=== PATIENT | female | born 1980 | race Caucasian/White ===

== ENCOUNTER → 2017-06-19 | Outpatient (CLI) | payer OTHER ==
[~2017-06-19] MED LIST: FRRS300 PO; PRENTAB26 PO
--- NOTE | 2017-06-19 12:48 | DIAGNOSTIC IMAGING REPORT ---
RIGHT LOWER EXTREMITY VENOUS DOPPLER HISTORY: RT FOOT PAIN/SWELLING, R/O DVT COMPARISON STUDY: None. FINDINGS: There is normal compressibility, flow, and augmentation within the right lower extremity deep venous system. IMPRESSION: No DVT within the right lower extremity Electronically signed by: Nura Magana M.D. 06/19/2017 12:47 PM Dictated Date/Time: 06/19/2017 12:46 PM
== END | disposition home or self-care (01) ==
LOC: C.ULTRBC 12:14
PROVIDERS: ATTEND Family Medicine
DX: M79.671 Pain in right foot (principal); R60.0 Localized edema

== ENCOUNTER 2017-09-09 17:49 | Emergency (ER) | payer OTHER ==
[2017-09-09 17:57] VITALS: TEMP 37.1; Ht 167.6 cm
--- NOTE | 2017-09-09 18:17 | EMERGENCY ROOM VISIT NOTE ---
ED Visit Note First contact with patient: 18:04 CHIEF COMPLAINT: Right knee pain HISTORY OF PRESENT ILLNESS: This 37-year-old female patient presents to the emergency department by private vehicle with complaint of right knee pain. Patient states that she twisted her knee while walking up some steps yesterday. She states that the pain has been getting progressively worse and today she has not been able to put weight on the knee without severe pain. She states that she is able to bend and straighten the knee without any pain. She states the pain is in the front of her knee, is constant and aching, rates as 3/10. She has not taken any medications for the pain. The patient denies any other injuries besides their knee. The patient has not noticed any swelling or bruising. No numbness or tingling. No previous injuries to this knee. No ankle, foot or hip pain. REVIEW OF SYSTEMS: A 6 system review of systems was completed with positives and pertinent negatives listed in the HPI. ALLERGIES: Reviewed in chart, see below. MEDICATIONS: No current medications. PMH: No significant past medical or surgical history. SOCIAL HISTORY: Lives at home. Denies tobacco use. PHYSICAL EXAM: Vital Signs: Reviewed Nurse's notes, vital signs stable. GENERAL : Pleasant and cooperative, no acute distress, well-developed, well-nourished. MENTAL STATUS: Alert, oriented to person place and time, and cooperative. MUSCULOSKELETAL: The right knee is not swollen. There is no ecchymosis. There is no joint effusion present. The patient is tender to palpation along the anterior aspect of the right knee. There is no joint line tenderness. The patella does not subluxate. Range of motion is full and normal. Strength of the quads and hamstrings is 5/5. Bing's and Anterior Drawer tests are negative. There is no instability with varus and valgus stressing. The foot and toes are warm and well-perfused. Dorsalis pedis pulse 2+. Sensation to pain and light touch is intact. Capillary refill less than 2 seconds. IMAGING: RIGHT KNEE 3 VIEWS HISTORY: anterior knee pain, include sunrise view COMPARISON: None. FINDINGS: No fracture or dislocation within the right knee. There is an 8 mm subchondral lucency within the medial femoral condyle with surrounding sclerosis. This is consistent with an osteochondral defect. No knee effusion. Soft tissues are unremarkable. No radiopaque foreign bodies. IMPRESSION: 1. No acute abnormality within the right knee. No fracture or dislocation. 2. An 8 mm osteochondral defect within the medial femoral condyle. Follow-up nonemergent right knee MRI is recommended for further evaluation. No intra-articular loose bodies identified. EMERGENCY DEPARTMENT COURSE: I examined the patient. X-rays of the right knee were reviewed by myself and read by radiology and reveal no acute abnormality. The patient was placed in a knee immobilizer under my direction and the position was satisfactory. The patient was instructed on the use of crutches, which she already has from home. The patient was provided with orthopedic surgery contact information for follow up. The patient was discharged home in good condition. Current/Historical Medications Scheduled Ferrous Sulfate (Iron), 325 MG PO DAILY Multivitamins/Minerals (Mvi With Minerals), 1 TAB PO DAILY Scheduled PRN Acetaminophen (Tylenol), 1,000 MG PO Q6 PRN for Pain Allergies Coded Allergies: Lactose (Verified Allergy, Mild, GI SYMPTOMS, 09/25/15) GI SYMPTOMS DURING Latex1 -Allergic Contact Dermititis (Verified Allergy, Mild, RASH, 09/25/15 ) Vital Signs Date Time Temp Pulse Resp B/P (MAP) Pulse Ox O2 Delivery O2 Flow Rate FiO2 09/09/17 19:31 81 16 139/81 98 09/09/17 17:57 37.1 86 18 146/86 98 Room Air Departure Information Impression Primary Impression: Sprain of right knee Dispostion Home / Self-Care Condition GOOD Referrals Hector Albrecht DO (PCP) Lavon Mckeon M.D. [facility] Patient Instructions ED Sprain Knee, My [facility] Additional Instructions DISCHARGE INSTRUCTIONS: You have been evaluated and treated in the emergency department today for your right knee pain. X-rays are negative for fractures. Ice and elevate the knee to reduce swelling and pain. Wear knee immobilizer when up and about. Use crutches - minimal weight on foot. Ibuprofen 600 mg and Tylenol 1000 mg every 6-8 hrs for pain. Follow-up with Orthopedics for further evaluation and treatment - call for appointment. Work Instructions Return To Work: 2 days Problem Qualifiers Primary Impression: Sprain of right knee Encounter type: initial encounter Involved ligament of knee: unspecified ligament Qualified Codes: S83.91XA - Sprain of unspecified site of right knee , initial encounter
[2017-09-09] MEDS ORDERED: MULT-513 PO (19:09)
[2017-09-09] MEDS ORDERED: FERR1TAB23 PO (19:09)
[2017-09-09] MEDS ORDERED: ACET-1256 PO (19:09)
[2017-09-09 19:31] VITALS: BP 139/81; PULSE 81; O2SAT 98
--- NOTE | 2017-09-09 19:38 | DIAGNOSTIC IMAGING REPORT ---
RIGHT KNEE 3 VIEWS HISTORY: anterior knee pain, include sunrise view COMPARISON: None. FINDINGS: No fracture or dislocation within the right knee. There is an 8 mm subchondral lucency within the medial femoral condyle with surrounding sclerosis. This is consistent with an osteochondral defect. No knee effusion. Soft tissues are unremarkable. No radiopaque foreign bodies. IMPRESSION: 1. No acute abnormality within the right knee. No fracture or dislocation. 2. An 8 mm osteochondral defect within the medial femoral condyle. Follow-up nonemergent right knee MRI is recommended for further evaluation. No intra-articular loose bodies identified. Electronically signed by: Nura Magana M.D. 09/09/2017 7:37 PM Dictated Date/Time: 09/09/2017 7:34 PM
== END 2017-09-09 19:26 | disposition home or self-care (01) ==
LOC: C.EDB 17:50 → C.EDD 19:26
DX: S83.91XA Sprain of unspecified site of right knee, initial encounter (principal); X50.1XXA Overexertion from prolonged static or awkward postures, initial encounter; Y93.01 Activity, walking, marching and hiking; Y99.8 Other external cause status; Z91.040 Latex allergy status; Z91.011 Allergy to milk products

== ENCOUNTER 2024-11-06 16:12 | Inpatient (IN) ==
--- NOTE | 2024-11-06 16:44 | Emergency Department Note ---
Impression & Plan Dizziness, Stroke-like symptoms, Nausea & vomiting, Ambulatory dysfunction, Anticoagulated ED Provider Note NAME: ANGELA LOCKHART AGE: 44 SEX: F : 1980 ARRIVES VIA: Walk-In INFORMANT: [Patient] ED PROVIDER(S): [Elmer Rinaldi MD] CHIEF COMPLAINT: Dizziness HISTORY OF PRESENT ILLNESS: Patient is a 44-year-old female who states that about 5-1/2 hours ago, she began to feel dizzy and there were some issues with her balance. She states that things quickly escalated to nausea and vomiting and feeling even more dizzy and off balance. She noticed a mild headache. No one-sided weakness. She feels better with her eyes closed. No speech slur. The patient is on Eliquis for A-fib, she does not have a history of CVA or TIA. There has been no recent trauma. She has not been sick with cough or cold or congestion. No urinary complaints. PMHx/PSHx/Social Hx: See Below PHYSICAL EXAM: GENERAL: Patient is in no acute distress. HEENT: No acute trauma, normocephalic atraumatic, mucous membranes moist, no nasal congestion. Pupils equal and reactive to light. No nystagmus. NECK: No stridor, no adenopathy, no meningismus, trachea is midline. LUNGS: Clear to auscultation bilaterally, no wheeze, no rhonchi, breath sounds equal. HEART: Without murmurs gallops or rubs, regular rate and rhythm. ABDOMEN: Soft, nontender, no peritonitis. Obese. EXTREMITIES: No cyanosis, full range of motion of all the joints without pain or difficulty. NEUROLOGIC: Oriented x 3, no speech slur or facial droop, no extremity drift or cerebellar dysfunction. Excellent historian. SKIN: No jaundice, no diaphoresis. DIFFERENTIAL DIAGNOSIS: Vertigo, dehydration, electrolyte imbalance, UTI, stroke, intracranial bleeding, among others. EMERGENCY DEPARTMENT PROCEDURES: MEDICAL DECISION MAKING: There is a mild leukocytosis, this could be consistent with infection or the stress of her presentation. There was a normal hemoglobin and platelet count. No bandemia. No coagulopathy by laboratory testing. No renal failure or significant electrolyte abnormality. No concerning liver enzyme elevation. testing was negative. ECG showed a sinus rhythm, no ischemia or dysrhythmia. Cardiac enzyme testing x 1 was not consistent with acute cardiac injury. Urinalysis did not show infection. Brain CT showed no acute bleed or mass effect. CTA of the head and neck were performed, there was no significant stenosis, no clot. On exam, the patient had no focal neurologic findings, no speech slur. As per nursing staff, the patient was very unsteady when trying to ambulate. The patient received IV saline, IV Zofran, IV Solu-Medrol, IV Benadryl. She did not feel much improved even with this medication. Certainly, the patient may have a severe case of vertigo. However, given the unsteadiness, given her Eliquis use, given the strokelike presentation potentially, I did think admission was warranted. I spoke with the patient and case management, the on-call hospitalist was consulted. Of note, the patient is not a TNK candidate. She is out of the time window for TNK, she is anticoagulated with Eliquis. Prior/Outside records/notes reviewed: None ECG per my interpretation: Indication was dizziness. The ECG shows a normal sinus rhythm with a rate of 63. There is no ST elevation, no PVCs. The QTc is 444. Continuous Cardiac Monitoring per my interpretation: An order was placed for continuous cardiac monitoring. The monitor shows a rate of 71 with normal sinus rhythm. Imaging/x-ray results per my interpretation: Chronic Medical/Social conditions affecting care: Currently on Eliquis for A- fib Care/Management discussed with: Case management, the on-call hospitalist. Level of care consideration(s): After review of the information above and other included data: --I believe the patient requires escalation of care to admission DISPOSITION: Admission Past Med/Surg History Problem List (Updated 11/06/24 @ 23:37 by Elmer Rinaldi MD) Anticoagulated (Acute) Ambulatory dysfunction (Acute) Nausea & vomiting (Acute) Stroke-like symptoms (Acute) Dizziness (Acute) Cholelithiasis Anxiety Hyperlipemia Intercostal neuralgia Breast hypertrophy in female (Chronic) resolved Morbid obesity (Chronic) Chronic chest wall pain (Chronic) resolved Right shoulder strain Breast pain Medical History Depression Hx of chlamydia infection prior to 2019 Hx of pelvic inflammatory disease History of COVID-19 02/2023, home test, low grade fever, flu-like symptoms>only occ. cough currently Anemia Anxiety Hx of migraines History of palpitations ~10/2022, stress test @[facility]>normal results Polycystic ovarian syndrome Surgical History Hx laparoscopic cholecystectomy (03/05/24) Robotic Assisted Laparoscopic Cholecystectomy with Possible Cholangiogram(Not Applicable) - Horacio Boss DO, FACS History of cystoscopy H/O: hysterectomy History of surgery on wrist right S/P tendon repair rt elbow History of wisdom tooth extraction History of laparoscopy with adhesiolysis 1999, 2000 Family History Grandfather (Maternal) Heart disease Sister Thyroid disease Grandfather (Maternal) Myocardial infarction Uncle Myocardial infarction Uncle Myocardial infarction Mother Cancer Heart disease Other No significant family history Trisomy 21, Down syndrome Social History Smoking Status: Never smoker Second Hand Exposure: No; Do You Dip or Chew Tobacco: No; Hx Alcohol Use: No Hx Substance Use: No Preferred Language: Icelandic Communication Ability: Effective Visual Impairment: No Limitations Hearing Ability: Normal Personal Care Assistant Required: No Beliefs That Will Affect Care: None marital status: Current Living Situation: Spouse and Family current occupational status: employed current occupation: [employer] How many Children do You have: 2 Other Information That Helps Us Care for You: No Feels Safe at Home: Yes Safety Concerns: Feels Safe At This Time during the past year weight has: remained stable Assistive Devices: Glasses Allergies Allergies Allergy/AdvReac Type Severity Reaction Status Date / Time latex Allergy Severe Swelling Verified 08/04/24 10:29 of Lip/Tongue/Throat lactose AdvReac Mild GI SYMPTOMS Verified 08/04/24 10:25 Home Meds Home Medications Medication Instructions Recorded Confirmed apixaban 5 mg tablet (Eliquis) 5 mg PO BID 08/04/24 11/06/24 ascorbic acid (vitamin C) 500 mg 500 mg PO DAILY 08/04/24 11/06/24 tablet (Vitamin C) epinephrine 0.3 mg/0.3 mL 0.3 mg IM DAILY PRN Allergic 08/04/24 11/06/24 injection, auto-injector Reaction buspirone 7.5 mg tablet 7.5 mg PO BID 11/06/24 11/06/24 metoprolol succinate 25 mg 25 mg PO BID 11/06/24 11/06/24 tablet,extended release 24 hr Results & Data (ED) Vital Signs Vital Signs - 24 hr 11/06/24 16:14 11/06/24 16:49 11/06/24 16:49 Temperature 36.7 C Temperature Source Temporal Artery Scan Pulse Rate 71 Pulse Rate [Apical] 66 Pulse Rhythm Regular Pulse Rhythm [Apical] Pulse Strength Normal Pulse Strength [Apical] Respiratory Rate 17 12 Respiratory Effort / Characteristics Non-Labored Spontaneous Respiratory Depth Normal Respiratory Pattern Regular Blood Pressure 141/98 H Blood Pressure [Left Arm] 157/99 H Blood Pressure Mean 112 Blood Pressure Mean [Left Arm] 118 Blood Pressure Position Sitting Blood Pressure Position [Left Arm] Pulse Oximetry 97 97 96 Oxygen Delivery Method Room Air Room Air Room Air Sepsis Recent Fever Within 48 Hours No Sepsis New/Unexplained Change in Mental Status N/A Sepsis Action Taken by Nursing No Action Required 11/06/24 16:49 11/06/24 17:24 11/06/24 18:12 Temperature Temperature Source Pulse Rate 62 62 Pulse Rate [Apical] 54 L Pulse Rhythm Pulse Rhythm [Apical] Regular Pulse Strength Pulse Strength [Apical] Normal Respiratory Rate 10 L 20 Respiratory Effort / Characteristics Non-Labored Respiratory Depth Normal Respiratory Pattern Regular Blood Pressure Blood Pressure [Left Arm] 157/99 H Blood Pressure Mean Blood Pressure Mean [Left Arm] 118 Blood Pressure Position Blood Pressure Position [Left Arm] Lying Pulse Oximetry 97 96 Oxygen Delivery Method Room Air Room Air Sepsis Recent Fever Within 48 Hours Sepsis New/Unexplained Change in Mental Status Sepsis Action Taken by Retirement Medications Current Medication List: was personally reviewed by me Laboratory Data Attestation: I reviewed the patient's lab results. 11/06/24 16:45 11/06/24 16:45 Lab Results 11/06/24 11/06/24 11/06/24 Range/Units 16:45 16:49 17:15 WBC 12.69 H (4.8-10.8) K/ul RBC 4.52 (4.20-5.40) M/uL Hgb 12.2 (12.0-16.0) g/dl POC Hgb 12.9 (12.0-16.0) g/dl Hct 37.1 (37.0-47.0) % POC Hct 38 (37-47) % MCV 82.1 (80.0-100.0) fL MCH 27.0 (25.0-34.0) pg MCHC 32.9 (32.0-36.0) g/dL RDW Std Deviation 44.2 (36.4-46.3) fL RDW Coeff of Ronnie 14.8 H (11.5-14.5) % Plt Count 386 (130-400) K/uL MPV 10.3 (9.4-12.4) fL Immature Gran % (Auto) 0.4 % Neut % (Auto) 70.8 % Lymph % (Auto) 20.6 % [place] % (Auto) 5.0 % Eos % (Auto) 2.7 % Baso % (Auto) 0.5 % Neut # (Auto) 9.00 H (1.40-6.50) K/uL Lymph # (Auto) 2.61 (1.20-3.40) K/uL [place] # (Auto) 0.63 H (0.11-0.59) K/uL Eos # (Auto) 0.34 (0.00-0.50) K/uL Baso # (Auto) 0.06 (0.00-0.20) K/uL Immature Gran # (Auto) 0.05 (0.01-0.20) K/uL PT 10.3 (9.0-12.0) Seconds INR 0.9 (0.9-1.1) APTT 29 (21-31) Seconds PTT Ratio 1.1 POC Sodium 139 (135-144) mmol/L Sodium 137 (136-145) mmol/L POC Potassium 4.0 (3.3-5.0) mmol/L Potassium 3.9 (3.5-5.1) mmol/L POC Chloride 101 (101-112) mmol/L Chloride 104 (98-107) mmol/L Carbon Dioxide 25 (21-32) mmol/L POC Total CO2 23 L (24-31) mmol/L Anion Gap 8 (3-11) POC Anion Gap 20.0 (16-25) mmol/L POC BUN 8 (7-18) mg/dl BUN 10 (6-23) mg/dl Creatinine 0.70 (0.6-1.2) mg/dl POC Creatinine 0.8 (0.6-1.3) mg/dl Est Cr Clr Drug Dosing 144.4 ml/min eGFR 110.67 BUN/Creatinine Ratio 14.3 (10-20) Glucose 121 H (70-99(Fasting)) mg/dl POC Glucose (other) 121 H (70-99) mg/dl Calcium 8.9 (8.6-10.3) mg/dl POC Ioniz Calcium Surjit 1.15 (1.12-1.32) mmol/l Magnesium 2.0 (1.7-2.4) mg/dl Total Bilirubin 0.4 (0.2-1.0) mg/dl AST 15 (13-39) U/L ALT 13 (7-52) U/L Alkaline Phosphatase 87 (34-104) U/L Troponin I High Sens 2.7 (0-14) pg/ml Total Protein 7.3 (6.0-8.3) gm/dl Albumin 3.8 (3.4-5.0) gm/dl Globulin 3.5 (2.5-4.0) gm/dl Albumin/Globulin Ratio 1.1 (0.9-2) HCG, Qual Negative (Negative) Urine Color Yellow Urine Appearance Clear (Clear) Urine pH 6.5 (4.5-7.5) Ur Specific [place] 1.006 (1.000-1.030) Urine Protein Negative (Negative) Urine Glucose (UA) Negative (Negative) Urine Ketones Negative (Negative) Urine Blood Negative (Negative) Urine Nitrite Negative (Negative) Urine Bilirubin Negative (Negative) Urine Urobilinogen Negative (Negative) Ur Leukocyte Esterase Negative (Negative) Urine Comment Administered Medications Buspirone HCl (Buspirone 7.5 Mg Tab) 7.5 mg PO BID DHRUV Stop: 12/06/24 20:59 Last Admin: 11/06/24 21:37 Dose: 7.5 mg Documented By: MARIETTA Diazepam (Diazepam 5 Mg Tablet) 5 mg PO BID PRN PRN Reason: dizziness Stop: 12/06/24 18:56 Last Admin: 11/06/24 19:45 Dose: 5 mg Documented By: LAF Discontinued Medications Diphenhydramine HCl (Diphenhydramine 50 Mg/Ml Vial) 12.5 mg IV NOW STA Stop: 11/06/24 16:40 Last Admin: 11/06/24 16:54 Dose: 12.5 mg Documented By: JOCY Sodium Chloride (Nss) 1,000 mls @ 999 mls/hr IV .Q1H1M ONE Stop: 11/06/24 17:39 Last Infusion: 11/06/24 17:57 Dose: Infused Documented By: Admin: 11/06/24 16:54 Dose: 999 mls/hr Documented By: JOCY Ioversol (Optiray 320 125ml) 119 ml IV ONCE ONE Stop: 11/06/24 17:08 Last Admin: 11/06/24 17:08 Dose: 119 ml Documented By: TENA Methylprednisolone (Methylprednisolone 125 Mg/2 Ml Vial) 40 mg IV NOW STA Stop: 11/06/24 16:40 Last Admin: 11/06/24 16:53 Dose: 40 mg Documented By: JOCY Ondansetron HCl (Ondansetron Inj 2 Mg/Ml 2 Ml Vial) 4 mg IV NOW STA Stop: 11/06/24 16:40 Last Admin: 11/06/24 16:53 Dose: 4 mg Documented By: JOCY Imaging Data Radiologist's Impression: Head CT 11/06/24 16:31 Clinical History: Dizziness and headaches. Technique: Axial computed tomography images were obtained of the brain from the vertex to the skull base without intravenous contrast. Findings: There is no sign of intracranial hemorrhage. There is normal curtis-white matter differentiation with no sign of acute or old infarction. No midline shift or other form of herniation is identified. There is no hydrocephalus. No obvious mass lesion is seen on this noncontrast examination. The visualized portions of the orbits and paranasal sinuses appear unremarkable. The mastoid air cells appear clear Impression: Unremarkable noncontrast CT of the brain Electronically signed by Shahbaz Keller 11-06-2024 5:24 PM Head CTA 11/06/24 16:39 Clinical History: Dizziness and headaches. Technique: Axial computed tomography images were obtained of the brain after the administration of intravenous contrast according to the CT angiogram protocol Findings: There is calcified plaque within the cavernous and supraclinoid segments of the internal carotid arteries bilaterally No definite stenosis or aneurysm is seen of the anterior, middle, or posterior cerebral artery circulations. The visualized vertebral arteries and the basilar artery appear unremarkable Impression: No definite stenosis or aneurysm of the intracranial arteries Electronically signed by Shahbaz Keller 11-06-2024 5:26 PM Neck CTA 11/06/24 16:39 Clinical history: Dizziness and headaches Technique: Axial computed tomography images were obtained of the neck after the administration of intravenous contrast according to the CT angiogram protocol Findings: No stenosis is seen of the common carotid arteries bilaterally. The carotid bulbs appear normal. The remainder of the internal carotid arteries appear patent bilaterally. No stenosis of the external carotid arteries is seen The left vertebral artery is dominant. No definite vertebral artery stenosis is seen. The visualized thoracic aorta appears unremarkable Impression: Unremarkable CTA of the neck Electronically signed by Shahbaz Keller 11-06-2024 5:30 PM Discharge Plan Visit Data Chief Complaint: Dizziness Stated Complaint: EXTREMELY DIZZY/LIGHTHEADED ED Provider: Elmer Rinaldi Discharge Problem: Dizziness, Stroke-like symptoms, Nausea & vomiting, Ambulatory dysfunction, Anticoagulated Patient Disposition: Admitted As Inpatient Condition: Fair Discharge Instructions Interventions: ED Discharge Assessment Last Done: 11/06/24 19:53 Discharge Problem: Nausea & vomiting Qualifiers: Vomiting type: unspecified Qualified Code(s): R11.2 - Nausea with vomiting, unspecified
[2024-11-06] MEDS: ONDANSETRON INJ 2 MG/ML 2 ML VIAL IV STA (16:53)
[2024-11-06] MEDS: diphenhydrAMINE 50 MG/ML VIAL IV STA (16:54)
[2024-11-06] MEDS: SODIUM CHLORIDE 0.9% 1,000 ML IV ONE (16:54)
[2024-11-06 17:02] LABS: Hematocrit (blood only) 37.1 % (37.0-47.0); Hemoglobin 12.2 g/dl (12.0-16.0); Immature Granulocytes # (auto) 0.05 K/uL (0.01-0.20); Immature Granulocytes % (auto) 0.4 %; Mean Corpuscular Hemoglobin 27.0 pg (25.0-34.0); Mean Corpuscular Volume 82.1 fL (80.0-100.0); Platelet Count 386 K/uL (130-400); RDW Standard Deviation 44.2 fL (36.4-46.3); Red Blood Count 4.52 M/uL (4.20-5.40); White Blood Count 12.69 K/ul (4.8-10.8)
[2024-11-06] MEDS: OPTIRAY 320 125ml IV ONE (17:08)
[2024-11-06 17:19] LABS: Alanine Aminotransferase 13.0 U/L (7-52); Albumin Globulin Ratio 1.1 (0.9-2); Alkaline Phosphatase 87.0 U/L (34-104); Anion Gap 8.0 (3-11); Bilirubin,Total 0.4 mg/dl (0.2-1.0); Blood Urea Nitrogen 10.0 mg/dl (6-23); Calcium 8.9 mg/dl (8.6-10.3); Carbon Dioxide 25.0 mmol/L (21-32); Chloride 104.0 mmol/L (98-107); Creatinine Clr Calc Pharmacy 144.4 ml/min; Globulin 3.5 gm/dl (2.5-4.0); Glucose 121.0 mg/dl (70-99(Fasting)); Magnesium 2.0 mg/dl (1.7-2.4); Potassium 3.9 mmol/L (3.5-5.1); Pregnancy Test, Serum Negative (Negative); Sodium 137.0 mmol/L (136-145); Total Protein 7.3 gm/dl (6.0-8.3)
--- NOTE | 2024-11-06 17:24 | CT Scan Report ---
Clinical History: Dizziness and headaches. Technique: Axial computed tomography images were obtained of the brain from the vertex to the skull base without intravenous contrast. Findings: There is no sign of intracranial hemorrhage. There is normal curtis-white matter differentiation with no sign of acute or old infarction. No midline shift or other form of herniation is identified. There is no hydrocephalus. No obvious mass lesion is seen on this noncontrast examination. The visualized portions of the orbits and paranasal sinuses appear unremarkable. The mastoid air cells appear clear Impression: Unremarkable noncontrast CT of the brain Electronically signed by Shahbaz Keller 11-06-2024 5:24 PM
--- NOTE | 2024-11-06 17:27 | CT Scan Report ---
Clinical History: Dizziness and headaches. Technique: Axial computed tomography images were obtained of the brain after the administration of intravenous contrast according to the CT angiogram protocol Findings: There is calcified plaque within the cavernous and supraclinoid segments of the internal carotid arteries bilaterally No definite stenosis or aneurysm is seen of the anterior, middle, or posterior cerebral artery circulations. The visualized vertebral arteries and the basilar artery appear unremarkable Impression: No definite stenosis or aneurysm of the intracranial arteries Electronically signed by Shahbaz Keller 11-06-2024 5:26 PM
[2024-11-06 17:33] LABS: INR 0.9 (0.9-1.1); Partial Thromboplastin Time 29 Seconds (21-31); Prothrombin Time 10.3 Seconds (9.0-12.0)
--- NOTE | 2024-11-06 17:33 | CT Scan Report ---
Clinical history: Dizziness and headaches Technique: Axial computed tomography images were obtained of the neck after the administration of intravenous contrast according to the CT angiogram protocol Findings: No stenosis is seen of the common carotid arteries bilaterally. The carotid bulbs appear normal. The remainder of the internal carotid arteries appear patent bilaterally. No stenosis of the external carotid arteries is seen The left vertebral artery is dominant. No definite vertebral artery stenosis is seen. The visualized thoracic aorta appears unremarkable Impression: Unremarkable CTA of the neck Electronically signed by Shahbaz Keller 11-06-2024 5:30 PM
[2024-11-06 17:35] LABS: Appearance Urine Clear (Clear); Glucose Urine UA Negative (Negative)
--- NOTE | 2024-11-06 18:37 | History & Physical Report ---
Date of Service November 06, 2024 Assessment & Plan (1) Anxiety: (2) Hyperlipemia: (3) Depression: (4) Anxiety: (5) Hx of migraines: Plan The patient is a 44-year-old female who presented to the ED on 11/06/2024 with complaints of dizziness x 6 hours not improved with medication Dizziness Vertigo versus CVA Trialed IV Solu-Medrol, Benadryl, Zofran in ED with no improvement PT/OT, head CT and head and neck CTA unremarkable Check head MRI, consult neurology, can trial Valium for symptom management Hx AF on AC: Continue metoprolol, hold Eliquis until stroke ruled out Hx anxiety: Continue buspirone Total of 60 minutes was spent on chart review/reviewing diagnostic data/facilitating plan of care/discussion with consultants Full code DVT prophylaxis: Eliquison hold for stroke rule out History of Present Illness Chief Complaint: Dizziness Primary Care Provider: Hector Albrecht The patient is a 44-year-old female with a past medical history of anxiety, HLD, A-fib on Eliquis who presents to the ED on 11/06/2024 with complaints of ongoing dizziness for 6 hours. Patient reports waking up this morning feeling dizzy. She initially felt lightheaded and thought she needed to eat. She went got f ood, felt like she was unable to stand and went back home and took a nap. She woke up with continuing symptoms. And was unable to move so she came to the ER. Patient also reported associated nausea and some vomiting secondary to the dizziness. Received IV Solu-Medrol, Benadryl and Zofran in the ER without improvement in symptoms. Reports she feels better with her eyes closed. She denies any fever/chills/chest pain/shortness of breath. Denies any abdominal pain. On arrival to the ED, labs are remarkable for WBC 12.6 CO2 23, glucose 121, urinalysis negative Head CT was negative Head CTA was negative Neck CTA was negative The patient will be admitted for further workup of dizziness and to rule out stroke Allergies Allergy/AdvReac Type Severity Reaction Status Date / Time latex Allergy Severe Swelling Verified 08/04/24 10:29 of Lip/Tongue/Throat lactose AdvReac Mild GI SYMPTOMS Verified 08/04/24 10:25 Home Medications Medication Instructions Recorded Confirmed Type apixaban 5 mg tablet (Eliquis) 5 mg PO BID 08/04/24 11/06/24 History ascorbic acid (vitamin C) 500 mg 500 mg PO DAILY 08/04/24 11/06/24 History tablet (Vitamin C) epinephrine 0.3 mg/0.3 mL 0.3 mg IM DAILY PRN Allergic 08/04/24 11/06/24 History injection, auto-injector Reaction buspirone 7.5 mg tablet 7.5 mg PO BID 11/06/24 11/06/24 History metoprolol succinate 25 mg 25 mg PO BID 11/06/24 11/06/24 History tablet,extended release 24 hr Past Med/Surg History Problem List (Updated 08/19/24 @ 00:06 by Coleman Dennis) Cholelithiasis Anxiety Hyperlipemia Intercostal neuralgia Breast hypertrophy in female (Chronic) resolved Morbid obesity (Chronic) Chronic chest wall pain (Chronic) resolved Right shoulder strain Breast pain Medical History Depression Hx of chlamydia infection prior to 2019 Hx of pelvic inflammatory disease History of COVID-19 02/2023, home test, low grade fever, flu-like symptoms>only occ. cough currently Anemia Anxiety Hx of migraines History of palpitations ~10/2022, stress test @[facility]>normal results Polycystic ovarian syndrome Surgical History Hx laparoscopic cholecystectomy (03/05/24) Robotic Assisted Laparoscopic Cholecystectomy with Possible Cholangiogram(Not Applicable) - Horacio Boss DO, FACS History of cystoscopy H/O: hysterectomy History of surgery on wrist right S/P tendon repair rt elbow History of wisdom tooth extraction History of laparoscopy with adhesiolysis 1999, 2000 Family History Grandfather (Maternal) Heart disease Sister Thyroid disease Grandfather (Maternal) Myocardial infarction Uncle Myocardial infarction Uncle Myocardial infarction Mother Cancer Heart disease Other No significant family history Trisomy 21, Down syndrome Social History Smoking Status: Never smoker Second Hand Exposure: No; Do You Dip or Chew Tobacco: No; Hx Alcohol Use: Yes Alcohol type: beer Alcohol Intake Frequency: Monthly or Less Hx Substance Use: No Preferred Language: Angolan Communication Ability: Effective Visual Impairment: No Limitations Hearing Ability: Normal Concrete Curer Required: No Beliefs That Will Affect Care: None marital status: Current Living Situation: Family current occupational status: employed current occupation: [employer] How many Children do You have: 2 Feels Safe at Home: Yes during the past year weight has: remained stable Assistive Devices: Glasses Review of Systems Review of Systems: All systems reviewed & are unremarkable except as noted in HPI & below Physical Exam Constitutional: WD/WN, vitals as above Eyes: PERRL, conjunctivae normal, anicteric sclerae ENMT: external ear and nose normal, oropharynx normal Neck: trachea midline, no thyromegaly Respiratory: normal respiratory effort, lungs clear to auscultation Cardiovascular: RRR, no murmur, no edema Gastrointestinal (Abdomen): normal bowel sounds, soft, nontender, no hepatosplenomegaly Musculoskeletal: no cyanosis or clubbing, extremities motor strength 5/5 Skin: no rashes, warm and dry Neurologic: PERRL, EOMI, accommodation nl, no face palsy, no dysarthria Psychiatric: A+Ox3, euthymic affect Genitourinary: no vaginal lesions, no adnexal mass Lymphatic: no cervical or axillary lymphadenopathy Results & Data Results & Data Vital Signs (Past 12 Hours) Vital Signs Temp Pulse Pulse Resp BP BP Pulse Ox 11/06/24 18:12 54 L 20 157/99 H 96 11/06/24 17:24 62 11/06/24 16:49 62 10 L 97 11/06/24 16:49 66 12 157/99 H 96 11/06/24 16:49 97 11/06/24 16:14 36.7 C 71 17 141/98 H 97 O2 Del Method 11/06/24 18:12 Room Air 11/06/24 17:24 11/06/24 16:49 Room Air 11/06/24 16:49 Room Air 11/06/24 16:49 Room Air 11/06/24 16:14 Room Air Diagnostic Findings Laboratory Results WBC 12.69 K/ul (4.8-10.8) H 11/06/24 16:45 RBC 4.52 M/uL (4.20-5.40) 11/06/24 16:45 Hgb 12.2 g/dl (12.0-16.0) 11/06/24 16:45 POC Hgb 12.9 g/dl (12.0-16.0) 11/06/24 16:49 Hct 37.1 % (37.0-47.0) 11/06/24 16:45 POC Hct 38 % (37-47) 11/06/24 16:49 MCV 82.1 fL (80.0-100.0) 11/06/24 16:45 MCH 27.0 pg (25.0-34.0) 11/06/24 16:45 MCHC 32.9 g/dL (32.0-36.0) 11/06/24 16:45 RDW Std Deviation 44.2 fL (36.4-46.3) 11/06/24 16:45 RDW Coeff of Ronnie 14.8 % (11.5-14.5) H 11/06/24 16:45 Plt Count 386 K/uL (130-400) 11/06/24 16:45 MPV 10.3 fL (9.4-12.4) 11/06/24 16:45 Immature Gran % (Auto) 0.4 % 11/06/24 16:45 Neut % (Auto) 70.8 % 11/06/24 16:45 Lymph % (Auto) 20.6 % 11/06/24 16:45 [place] % (Auto) 5.0 % 11/06/24 16:45 Eos % (Auto) 2.7 % 11/06/24 16:45 Baso % (Auto) 0.5 % 11/06/24 16:45 Neut # (Auto) 9.00 K/uL (1.40-6.50) H 11/06/24 16:45 Lymph # (Auto) 2.61 K/uL (1.20-3.40) 11/06/24 16:45 [place] # (Auto) 0.63 K/uL (0.11-0.59) H 11/06/24 16:45 Eos # (Auto) 0.34 K/uL (0.00-0.50) 11/06/24 16:45 Baso # (Auto) 0.06 K/uL (0.00-0.20) 11/06/24 16:45 Immature Gran # (Auto) 0.05 K/uL (0.01-0.20) 11/06/24 16:45 PT 10.3 Seconds (9.0-12.0) 11/06/24 16:45 INR 0.9 (0.9-1.1) 11/06/24 16:45 APTT 29 Seconds (21-31) 11/06/24 16:45 PTT Ratio 1.1 11/06/24 16:45 POC Sodium 139 mmol/L (135-144) 11/06/24 16:49 Sodium 137 mmol/L (136-145) 11/06/24 16:45 POC Potassium 4.0 mmol/L (3.3-5.0) 11/06/24 16:49 Potassium 3.9 mmol/L (3.5-5.1) 11/06/24 16:45 POC Chloride 101 mmol/L (101-112) 11/06/24 16:49 Chloride 104 mmol/L (98-107) 11/06/24 16:45 Carbon Dioxide 25 mmol/L (21-32) 11/06/24 16:45 POC Total CO2 23 mmol/L (24-31) L 11/06/24 16:49 Anion Gap 8 (3-11) 11/06/24 16:45 POC Anion Gap 20.0 mmol/L (16-25) 11/06/24 16:49 POC BUN 8 mg/dl (7-18) 11/06/24 16:49 BUN 10 mg/dl (6-23) 11/06/24 16:45 Creatinine 0.70 mg/dl (0.6-1.2) 11/06/24 16:45 POC Creatinine 0.8 mg/dl (0.6-1.3) 11/06/24 16:49 Est Cr Clr Drug Dosing 144.4 ml/min 11/06/24 16:45 eGFR 110.67 11/06/24 16:45 BUN/Creatinine Ratio 14.3 (10-20) 11/06/24 16:45 Glucose 121 mg/dl (70-99(Fasting)) H 11/06/24 16:45 POC Glucose (other) 121 mg/dl (70-99) H 11/06/24 16:49 Calcium 8.9 mg/dl (8.6-10.3) 11/06/24 16:45 POC Ioniz Calcium Surjit 1.15 mmol/l (1.12-1.32) 11/06/24 16:49 Magnesium 2.0 mg/dl (1.7-2.4) 11/06/24 16:45 Total Bilirubin 0.4 mg/dl (0.2-1.0) 11/06/24 16:45 AST 15 U/L (13-39) 11/06/24 16:45 ALT 13 U/L (7-52) 11/06/24 16:45 Alkaline Phosphatase 87 U/L (34-104) 11/06/24 16:45 Troponin I High Sens 2.7 pg/ml (0-14) 11/06/24 16:45 Total Protein 7.3 gm/dl (6.0-8.3) 11/06/24 16:45 Albumin 3.8 gm/dl (3.4-5.0) 11/06/24 16:45 Globulin 3.5 gm/dl (2.5-4.0) 11/06/24 16:45 Albumin/Globulin Ratio 1.1 (0.9-2) 11/06/24 16:45 HCG, Qual Negative (Negative) 11/06/24 16:45 Urine Color Yellow 11/06/24 17:15 Urine Appearance Clear (Clear) 11/06/24 17:15 Urine pH 6.5 (4.5-7.5) 11/06/24 17:15 Ur Specific Olivia 1.006 (1.000-1.030) 11/06/24 17:15 Urine Protein Negative (Negative) 11/06/24 17:15 Urine Glucose (UA) Negative (Negative) 11/06/24 17:15 Urine Ketones Negative (Negative) 11/06/24 17:15 Urine Blood Negative (Negative) 11/06/24 17:15 Urine Nitrite Negative (Negative) 11/06/24 17:15 Urine Bilirubin Negative (Negative) 11/06/24 17:15 Urine Urobilinogen Negative (Negative) 11/06/24 17:15 Ur Leukocyte Esterase Negative (Negative) 11/06/24 17:15 Urine Comment 11/06/24 17:[address] 11/06/24 16:31 Clinical History: Dizziness and headaches. Technique: Axial computed tomography images were obtained of the brain from the vertex to the skull base without intravenous contrast. Findings: There is no sign of intracranial hemorrhage. There is normal curtis-white matter differentiation with no sign of acute or old infarction. No midline shift or other form of herniation is identified. There is no hydrocephalus. No obvious mass lesion is seen on this noncontrast examination. The visualized portions of the orbits and paranasal sinuses appear unremarkable. The mastoid air cells appear clear Impression: Unremarkable noncontrast CT of the brain Electronically signed by Shahbaz Keller 11-06-2024 5:24 PM Head CTA 11/06/24 16:39 Clinical History: Dizziness and headaches. Technique: Axial computed tomography images were obtained of the brain after the administration of intravenous contrast according to the CT angiogram protocol Findings: There is calcified plaque within the cavernous and supraclinoid segments of the internal carotid arteries bilaterally No definite stenosis or aneurysm is seen of the anterior, middle, or posterior cerebral artery circulations. The visualized vertebral arteries and the basilar artery appear unremarkable Impression: No definite stenosis or aneurysm of the intracranial arteries Electronically signed by Shahbaz Keller 11-06-2024 5:26 PM Neck CTA 11/06/24 16:39 Clinical history: Dizziness and headaches Technique: Axial computed tomography images were obtained of the neck after the administration of intravenous contrast according to the CT angiogram protocol Findings: No stenosis is seen of the common carotid arteries bilaterally. The carotid bulbs appear normal. The remainder of the internal carotid arteries appear patent bilaterally. No stenosis of the external carotid arteries is seen The left vertebral artery is dominant. No definite vertebral artery stenosis is seen. The visualized thoracic aorta appears unremarkable Impression: Unremarkable CTA of the neck Electronically signed by Shahbaz Keller 11-06-2024 5:30 PM Supervising Physician Co-Signing Physician Notes Attending Addendum: Case reviewed with the advanced practitioner. I have personally performed a history and physical examination on the patient. I have reviewed the advanced practitioner's documentation on the date of service referenced in note, and I agree with, and take responsibility for the plan of care. please refer to her notes for full details patient seen and examined, records reviewed by myself as well on exam, patient seen resting in bed, not in distress still having some dizziness- room spinning around her no chest pain, dyspnea, palpitations, dizziness no fever/chills, headache, blurring of vision, focal neuro deficits no other symptoms VS noted and reviewed oriented x 3, not in distress, speaks in sentences with no effort nor accessory muscle use normal rate, regular rhythm, no murmurs clear breath sounds bilaterally non distended, soft, nontender no bipedal edema, erythema, warmth no neuro deficits all labs, imaging noted and reviewed ASSESSMENT AND PLAN> DIZZINESS LIKELY BPPV CT head and neck angio: no acute process, occlusion, stenosis Brain MRI pending trial of Valium PRN Meclizine, Zofran PT/OT eval for Sylwia Maneuver tomorrow other diagnoses and plan of care as per advanced practitioner's notes I spent a total of 35 minutes coordinating, documenting, and providing care for this patient, excluding time spent in the performance of separately billed services or time spent by another provider/QHP. Ajit Knapp MD
[2024-11-06] MEDS ORDERED: ACETAMINOPHEN 325 MG TAB PO PRN (20:00)
[2024-11-06] MEDS ORDERED: PHARMACIST DISCHARGE MED REC CONSULT PRN (20:00)
--- NOTE | 2024-11-06 22:22 | Magnetic Resonance Report ---
Exam(s): MRI HEAD Without Contrast EXAM: MR Head Without Intravenous Contrast CLINICAL HISTORY: Reason for exam: r/o stroke. TECHNIQUE: Magnetic resonance images of the head/brain without intravenous contrast in multiple planes. COMPARISON: Prior head CT from November 06. FINDINGS: Brain: Unremarkable. No mass. No hemorrhage. No acute infarct. The flow voids at the base. Ventricles: Unremarkable. No ventriculomegaly. Bones/joints: There is loss of normal T1 bright bone marrow signal within the calvarium and proximal cervical spine. No acute fracture. Sinuses: Unremarkable as visualized. No acute sinusitis. Mastoid air cells: Unremarkable as visualized. No mastoid effusion. Orbits: Unremarkable as visualized. IMPRESSION: No evidence of acute intracranial pathology. Loss of normal bone marrow signal within the calvarium and proximal cervical spine concerning for possible replacement process. Electronically signed by: Kenia Rabago MD 11/06/24 22:21 PM
[2024-11-07 06:53] LABS: Hematocrit (blood only) 37.9 % (37.0-47.0); Hemoglobin 12.2 g/dl (12.0-16.0); Immature Granulocytes # (auto) 0.11 K/uL (0.01-0.20); Immature Granulocytes % (auto) 0.8 %; Mean Corpuscular Hemoglobin 26.7 pg (25.0-34.0); Mean Corpuscular Volume 82.9 fL (80.0-100.0); Platelet Count 407 K/uL (130-400); RDW Standard Deviation 44.8 fL (36.4-46.3); Red Blood Count 4.57 M/uL (4.20-5.40); White Blood Count 13.21 K/ul (4.8-10.8)
[2024-11-07 07:12] LABS: Alanine Aminotransferase 12.0 U/L (7-52); Albumin Globulin Ratio 1.2 (0.9-2); Alkaline Phosphatase 78.0 U/L (34-104); Anion Gap 7.0 (3-11); Bilirubin,Total 0.3 mg/dl (0.2-1.0); Blood Urea Nitrogen 9.0 mg/dl (6-23); Calcium 8.6 mg/dl (8.6-10.3); Carbon Dioxide 26.0 mmol/L (21-32); Chloride 105.0 mmol/L (98-107); Cholesterol 174.0 mg/dl (0-200); Creatinine Clr Calc Pharmacy 180.9 ml/min; Globulin 3.2 gm/dl (2.5-4.0); Glucose 127.0 mg/dl (70-99(Fasting)); HDL Cholesterol 46.0 mg/dl; Potassium 4.1 mmol/L (3.5-5.1); Sodium 138.0 mmol/L (136-145); Total Protein 7.0 gm/dl (6.0-8.3); Triglycerides 76.0 mg/dl (0-150)
[2024-11-07 07:27] LABS: Hemoglobin A1C 5.9 % (4.5-5.6)
[2024-11-07] MEDS: ASPIRIN 81 MG ECTAB PO SCH (07:43)
[2024-11-07] MEDS: ATORVASTATIN 40 MG TAB PO SCH (07:44)
[2024-11-07] MEDS: ASCORBIC ACID 500 MG TAB PO SCH (07:44)
[2024-11-07] MEDS: METOPROLOL SUCC 25MG EXT REL TAB PO SCH (07:44)
[2024-11-07] MEDS: MECLIZINE HCL 25 MG TAB PO PRN (07:44)
[2024-11-07] MEDS: ONDANSETRON INJ 2 MG/ML 2 ML VIAL IV PRN (07:46)
--- NOTE | 2024-11-07 08:48 | Electrocardiogram Report ---
Test Reason : Blood Pressure : */* mmHG Vent. Rate : 52 BPM Atrial Rate : 52 BPM P-R Int : 162 ms QRS Dur : 90 ms QT Int : 488 ms P-R-T Axes : 18 11 15 degrees QTcB Int : 453 ms Sinus bradycardia Otherwise normal ECG When compared with ECG of 06-Nov-2024 16:40, (unconfirmed) No significant change was found Confirmed by Simba Reynoso ([id number]) on 11/07/2024 8:47:55 AM Referred By: REFERRED SELF Confirmed By: Simba Reynoso
--- NOTE | 2024-11-07 08:48 | Electrocardiogram Report ---
Test Reason : Blood Pressure : */* mmHG Vent. Rate : 63 BPM Atrial Rate : 63 BPM P-R Int : 154 ms QRS Dur : 82 ms QT Int : 434 ms P-R-T Axes : 10 4 3 degrees QTcB Int : 444 ms Normal sinus rhythm Normal ECG When compared with ECG of 04-Aug-2024 09:00, QT has lengthened Confirmed by Simba Reynoso ([id number]) on 11/07/2024 8:48:19 AM Referred By: REFERRED SELF Confirmed By: Simba Reynoso
[2024-11-07] MEDS: MECLIZINE HCL 25 MG TAB PO SCH (10:30)
--- NOTE | 2024-11-07 11:49 | Hospitalist Progress Note ---
Date of Service November 07, 2024 Assessment & Plan (1) Anxiety: (2) Hyperlipemia: (3) Depression: (4) Hx of migraines: Plan The patient is a 44-year-old female who presented to the ED on 11/06/2024 with complaints of dizziness x 6 hours not improved with medication Vertigo Acute CVA ruled out Patient presented to the hospital with onset of vertigo; she underwent CT head, CTA head and neck and MRI brain which did not show any acute findings. Urinalysis not suggestive of infection Will start on meclizine scheduled. PT OT evaluation for Sylwia maneuver. Orthostatic vitals every 8 hours Neurology consulted; appreciate recommendation. Continue on aspirin, Lipitor and Eliquis Atrial fibrillationcontinue metoprolol, Eliquis History of anxietycontinue on buspirone Full code DVT prophylaxis Eliquis Please note the above document was generated using voice recognition software. It may contain grammatical, syntax or spelling errors. Any formal questions or concerns about the content, text or information contained within the body of this dictation should be directly addressed to the provider for clarification Admission and Anticipated Discharge Date Admission Date: November 06, 2024 Subjective Patient seen and examined at bedside. She reports vertigo while lying down; reports that she also was dizzy while going to the bathroom today. No significant events overnight Review of Systems Review of Systems: All systems reviewed & are unremarkable except as noted in Subjective Physical Exam Physical Exam: Constitutional: WD/WN, vitals as above, NAD, sitting up in bed, pleasant, conversing easily Respiratory: normal respiratory effort, lungs clear to auscultation, no wheeze, rales, rhonchi. Normal insp/exp effort, no accessory muscle use Cardiovascular: RRR, no murmur, no edema Vessels: no JVD or carotid bruit Chest: normal inspection of chest Abdomen: normal bowel sounds, soft, nontender, no hepatosplenomegaly Musculoskeletal: no cyanosis or clubbing, extremities motor strength 5/5 Skin: no rashes, warm and dry normal turgor Neurologic: PERRL, EOMI, accommodation nl, no face palsy, no dysarthria CN's II- XI intact bilaterally and moves all extremities Psychiatric: A+Ox3, euthymic affect Results & Data Results & Data Vital Signs (Past 12 Hours) Vital Signs Temp Pulse Pulse Resp BP Pulse Ox O2 Del Method 11/07/24 11:08 36.8 C 51 L 14 133/86 94 Room Air 11/07/24 08:00 Room Air 11/07/24 07:57 36.7 C 52 L 16 138/82 98 Room Air 11/07/24 03:01 36.7 C 89 16 146/83 H 94 Room Air 11/07/24 00:00 59 L
--- NOTE | 2024-11-07 13:30 | Neurology Consultation ---
Date of Consultation November 07, 2024 Assessment & Plan (1) Vertigo: Suspect BPPV Continue to treat symptoms Maintain hydration Consider ambulatory referral to ENT Recommend echocardiogram as part of complete workup Continue frequent neurological assessments Obtain stat CT brain without contrast for any acute neurological decline Continue to monitor/control blood pressure & blood glucose Continue to monitor telemetry closely Continue to monitor renal and hepatic function, keep euvolemic Metabolic workup should include hgbA1c, fasting lipids Agree with continued full anticoagulation Continue to monitor for s/s of hemorrhage Ok from neurology perspective for VTE prophylaxis PT/OT/SLT to eval and treat Continue to provide CPAP QHS Telehealth Consultation Telehealth Information Telehealth Information: I performed this visit using a real-time telehealth connection between my location and the patients location ([facility]). After connecting through interactive tele-video, patient was identified by name and date of and/or wristband check.Patient (or authorized healthcare account representative) was informed that this was a telemedicine visit and it was being conducted confidentially over secure lines. My office door was closed and no one else was present in the room with me.Patient (or authorized healthcare account representative) provided consent to proceed with the visit, expressed an understanding of privacy and security of the telemedicine visit, and gave permission to have a hospital account representative in the room in order to assist with the visit and to conduct portions of the visit, as needed. I informed the patient (or authorized healthcare account representative) that I reviewed their record and presented the opportunity for them to ask any questions regarding the visit today. The patient agreed to participate. History of Present Illness Reason for Consultation: Dizziness Requesting Physician: Dr Hernandez Attending Physician: Sandor Hernandez MD History of Present Illness 44yo right handed female with hx of AFIB, hyperlipidemia, REGLA, morbid obesity and anxiety presented to ER with new onset dizziness vertigo sensation. She reportedly awoke with symptoms yesterday. She reported nausea and vomiting with symptoms as well. She has undergone emergent stroke imaging including CT brain without contrast, personally reviewed today, revealing no overt evidence of hemorrhage. CT angiographic studies of head and neck, also personally reviewed today, reveal no overt evidence of large vessel occlusion or significant/flow limiting stenosis. MRI brain completed without evidence of acute ischemic stroke or acute intracranial pathology. I have performed televideo consultation. She is alert & oriented; able to answer all questions appropriately, name objects on televideo monitor, repeat phrases and perform complex/embedded commands without deficit. Neurological exam is non lateralizing/nonfocal in terms of motor strength and coordination. No reported cephalgia or cervicalgia at this time. Denies chest pain/palpitations or shortness of breath. No reported changes in hearing. Denies dysphagia. No reported seizure like activity. Denies full syncop e pr paresthesia. Denies recent fevers chills nausea vomiting changes in bowels or bladder. Denies recent medication changes, recent illness or sick contacts, no reported recent travel. Allergies Allergy/AdvReac Type Severity Reaction Status Date / Time latex Allergy Severe Swelling Verified 08/04/24 10:29 of Lip/Tongue/Throat lactose AdvReac Mild GI SYMPTOMS Verified 08/04/24 10:25 Home Medications Medication Instructions Recorded Confirmed Type apixaban 5 mg tablet (Eliquis) 5 mg PO BID 08/04/24 11/06/24 History ascorbic acid (vitamin C) 500 mg 500 mg PO DAILY 08/04/24 11/06/24 History tablet (Vitamin C) epinephrine 0.3 mg/0.3 mL 0.3 mg IM DAILY PRN Allergic 08/04/24 11/06/24 History injection, auto-injector Reaction buspirone 7.5 mg tablet 7.5 mg PO BID 11/06/24 11/06/24 History metoprolol succinate 25 mg 25 mg PO BID 11/06/24 11/06/24 History tablet,extended release 24 hr Patient History Medical History Depression Hx of chlamydia infection prior to 2019 Hx of pelvic inflammatory disease History of COVID-19 02/2023, home test, low grade fever, flu-like symptoms>only occ. cough currently Anemia Anxiety Hx of migraines History of palpitations ~10/2022, stress test @[facility]>normal results Polycystic ovarian syndrome Surgical History Hx laparoscopic cholecystectomy (03/05/24) Robotic Assisted Laparoscopic Cholecystectomy with Possible Cholangiogram(Not Applicable) - Horacio Boss DO, FACS History of cystoscopy H/O: hysterectomy History of surgery on wrist right S/P tendon repair rt elbow History of wisdom tooth extraction History of laparoscopy with adhesiolysis 1999, 2000 Family History Grandfather (Maternal) Heart disease Sister Thyroid disease Grandfather (Maternal) Myocardial infarction Uncle Myocardial infarction Uncle Myocardial infarction Mother Cancer Heart disease Other No significant family history Trisomy 21, Down syndrome Social History Smoking Status: Never smoker Second Hand Exposure: No; Do You Dip or Chew Tobacco: No; Hx Alcohol Use: No Hx Substance Use: No Preferred Language: Croatian Communication Ability: Effective Visual Impairment: No Limitations Hearing Ability: Normal 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 Oriented to person, place, and time. Fluency naming repetition and comprehension appear grossly intact. Affect remains appropriate. CN testing: I: Deferred II:Reports no changes in visual acuity III/IV/: No evidence of gaze preference, hippus, nystagmus or roving eye movements V: Facial sensation reportedly grossly intact to light touch bilaterally VII: Facial movements appear without evidence of asymmetry VIII: Hearing appears grossly intact to loud voice bilaterally IX/X: Palate is unable to be accurately assessed via telemedicine XI: Shoulder shrug appears symmetric/ grossly intact bilaterally XII: Tongue protrudes midline without evidence of biting Motor exam: Strength appears grossly intact/symmetric in all extremities Sensory: Sensation is reportedly grossly intact throughout Coordination: No apparent evidence of dysmetria or dysdiadochokinesia Reflexes: Deferred Gait: Deferred Results & Data Vital Signs (Past 12 Hours) Vital Signs Temp Pulse Resp BP Pulse Ox O2 Del Method 11/07/24 11:08 36.8 C 51 L 14 133/86 94 Room Air 11/07/24 08:00 Room Air 11/07/24 07:57 36.7 C 52 L 16 138/82 98 Room Air 11/07/24 03:01 36.7 C 89 16 146/83 H 94 Room Air Laboratory Results Abnormal lab results 11/06/24 11/06/24 11/07/24 Range/Units 16:45 16:49 05:53 WBC 12.69 H 13.21 H (4.8-10.8) K/ul RDW Coeff of Ronnie 14.8 H 14.9 H (11.5-14.5) % Plt Count 407 H (130-400) K/uL Neut # (Auto) 9.00 H 11.50 H (1.40-6.50) K/uL Kemper # (Auto) 0.63 H (0.11-0.59) K/uL POC Total CO2 23 L (24-31) mmol/L Creatinine 0.56 L (0.6-1.2) mg/dl Glucose 121 H 127 H (70-99(Fasting)) mg/dl POC Glucose (other) 121 H (70-99) mg/dl Hemoglobin A1c 5.9 H (4.5-5.6) % AST 11 L (13-39) U/L Diagnostic Findings Head CT 11/06/24 16:31 Clinical History: Dizziness and headaches. Technique: Axial computed tomography images were obtained of the brain from the vertex to the skull base without intravenous contrast. Findings: There is no sign of intracranial hemorrhage. There is normal curtis-white matter differentiation with no sign of acute or old infarction. No midline shift or other form of herniation is identified. There is no hydrocephalus. No obvious mass lesion is seen on this noncontrast examination. The visualized portions of the orbits and paranasal sinuses appear unremarkable. The mastoid air cells appear clear Impression: Unremarkable noncontrast CT of the brain Electronically signed by Shahbaz Keller 11-06-2024 5:24 PM Head CTA 11/06/24 16:39 Clinical History: Dizziness and headaches. Technique: Axial computed tomography images were obtained of the brain after the administration of intravenous contrast according to the CT angiogram protocol Findings: There is calcified plaque within the cavernous and supraclinoid segments of the internal carotid arteries bilaterally No definite stenosis or aneurysm is seen of the anterior, middle, or posterior cerebral artery circulations. The visualized vertebral arteries and the basilar artery appear unremarkable Impression: No definite stenosis or aneurysm of the intracranial arteries Electronically signed by Shahbaz Keller 11-06-2024 5:26 PM Neck CTA 11/06/24 16:39 Clinical history: Dizziness and headaches Technique: Axial computed tomography images were obtained of the neck after the administration of intravenous contrast according to the CT angiogram protocol Findings: No stenosis is seen of the common carotid arteries bilaterally. The carotid bulbs appear normal. The remainder of the internal carotid arteries appear patent bilaterally. No stenosis of the external carotid arteries is seen The left vertebral artery is dominant. No definite vertebral artery stenosis is seen. The visualized thoracic aorta appears unremarkable Impression: Unremarkable CTA of the neck Electronically signed by Shahbaz Keller 11-06-2024 5:30 PM Brain MRI 11/06/24 20:00 Exam(s): MRI HEAD Without Contrast EXAM: MR Head Without Intravenous Contrast CLINICAL HISTORY: Reason for exam: r/o stroke. TECHNIQUE: Magnetic resonance images of the head/brain without intravenous contrast in multiple planes. COMPARISON: Prior head CT from November 06. FINDINGS: Brain: Unremarkable. No mass. No hemorrhage. No acute infarct. The flow voids at the base. Ventricles: Unremarkable. No ventriculomegaly. Bones/joints: There is loss of normal T1 bright bone marrow signal within the calvarium and proximal cervical spine. No acute fracture. Sinuses: Unremarkable as visualized. No acute sinusitis. Mastoid air cells: Unremarkable as visualized. No mastoid effusion. Orbits: Unremarkable as visualized. IMPRESSION: No evidence of acute intracranial pathology. Loss of normal bone marrow signal within the calvarium and proximal cervical spine concerning for possible replacement process. Electronically signed by: Kenia Rabago MD 11/06/24 22:21 PM Medications Administered Home Medications Medication Instructions Recorded Confirmed Last Taken apixaban 5 mg tablet (Eliquis) 5 mg PO BID 08/04/24 11/06/24 08/04/24 ascorbic acid (vitamin C) 500 mg 500 mg PO DAILY 08/04/24 11/06/24 08/03/24 tablet (Vitamin C) epinephrine 0.3 mg/0.3 mL 0.3 mg IM DAILY PRN Allergic 08/04/24 11/06/24 Unknown injection, auto-injector Reaction buspirone 7.5 mg tablet 7.5 mg PO BID 11/06/24 11/06/24 Unknown metoprolol succinate 25 mg 25 mg PO BID 11/06/24 11/06/24 Unknown tablet,extended release 24 hr Active Medications Generic Name Dose Route Start Last Admin Trade Name Freq PRN Reason Stop Dose Admin Ascorbic Acid 500 mg 11/07/24 09:00 11/07/24 07:44 Ascorbic Acid 500 Mg Tab PO 12/07/24 08:59 500 mg DAILY DHRUV Administration Aspirin 81 mg 11/07/24 09:00 11/07/24 07:43 Aspirin 81 Mg Ectab PO 12/07/24 08:59 81 mg QAM DHRUV Administration Atorvastatin Calcium 40 mg 11/07/24 09:00 11/07/24 07:44 Atorvastatin 40 Mg Tab PO 12/07/24 08:59 40 mg QAM DHRUV Administration Buspirone HCl 7.5 mg 11/06/24 21:00 11/07/24 07:44 Buspirone 7.5 Mg Tab PO 12/06/24 20:59 7.5 mg BID DHRUV Administration Meclizine HCl 25 mg 11/07/24 10:15 11/07/24 10:30 Meclizine Hcl 25 Mg Tab PO 12/07/24 10:14 Not Given Q8H DHRUV Metoprolol Succinate 25 mg 11/07/24 09:00 11/07/24 07:44 Metoprolol Succ 25mg Ext Rel Tab PO 12/07/24 08:59 25 mg BID DHRUV Administration Ondansetron HCl 4 mg 11/06/24 19:35 11/07/24 07:46 Ondansetron Inj 2 Mg/Ml 2 Ml Vial IV 12/06/24 19:34 4 mg Q6H PRN Administration Nausea And Vomiting
[2024-11-07] MEDS: APIXABAN 5 MG TABLET PO SCH (13:31)
[2024-11-07] MEDS: SODIUM CHLORIDE 0.9% 1,000 ML IV SCH (13:41)
[2024-11-08 07:09] VITALS: BP 113/68; RESP 18; TEMP 97.9; O2SAT 98
[2024-11-08 07:32] LABS: Anion Gap 5.0 (3-11); Blood Urea Nitrogen 14.0 mg/dl (6-23); Calcium 8.0 mg/dl (8.6-10.3); Carbon Dioxide 28.0 mmol/L (21-32); Chloride 106.0 mmol/L (98-107); Creatinine Clr Calc Pharmacy 140.3 ml/min; Glucose 79.0 mg/dl (70-99(Fasting)); Potassium 4.1 mmol/L (3.5-5.1); Sodium 139.0 mmol/L (136-145)
[2024-11-08 10:59] VITALS: PULSE 63
--- NOTE | 2024-11-08 16:37 | Discharge Summary ---
Date of Service November 08, 2024 Admission HPI Per Admitting Provider The patient is a 44-year-old female with a past medical history of anxiety, HLD, A-fib on Eliquis who presents to the ED on 11/06/2024 with complaints of ongoing dizziness for 6 hours. Patient reports waking up this morning feeling dizzy. She initially felt lightheaded and thought she needed to eat. She went got food, felt like she was unable to stand and went back home and took a nap. She woke up with continuing symptoms. And was unable to move so she came to the ER. Patient also reported associated nausea and some vomiting secondary to the dizziness. Received IV Solu-Medrol, Benadryl and Zofran in the ER without improvement in symptoms. Reports she feels better with her eyes closed. She denies any fever/chills/chest pain/shortness of breath. Denies any abdominal pain. On arrival to the ED, labs are remarkable for WBC 12.6 CO2 23, glucose 121, urinalysis negative Head CT was negative Head CTA was negative Neck CTA was negative The patient will be admitted for further workup of dizziness and to rule out stroke Principal Diagnosis Vertigo Discharge Data Allergies Allergy/AdvReac Type Severity Reaction Status Date / Time latex Allergy Severe Swelling Verified 08/04/24 10:29 of Lip/Tongue/Throat lactose AdvReac Mild GI SYMPTOMS Verified 08/04/24 10:25 Consultations 11/06/24 18:25 ED Decision to Admit Stat 11/06/24 20:00 Consult Neurology Routine Ordered Studies 11/06/24 16:31 CT head/brain wo con Stat 11/06/24 16:39 CT angio head w con Stat CT angio neck with con Stat 11/06/24 20:00 MRI Brain [MR brain wo con] Routine Hospital Course (1) Anxiety: (2) Hyperlipemia: (3) Depression: (4) Hx of migraines: Plan The patient is a 44-year-old female who presented to the ED on 11/06/2024 with complaints of dizziness x 6 hours not improved with medication Vertigo Acute CVA ruled out Patient presented to the hospital with onset of vertigo; she underwent CT head, CTA head and neck and MRI brain which did not show any acute findings. Urinalysis not suggestive of infection Patient underwent PT OT evaluation for possible BPPV. Patient was also given IV fluids. Patient reported improvement in her dizziness. She was noted to have sinus bradycardia for which her metoprolol dose was decreased to 12.5 mg twice daily. Patient was discharged home with instructions to follow up with PCP and obtain ambulatory referral to ENT for further evaluation of the vertigo. Please note the above document was generated using voice recognition software. It may contain grammatical, syntax or spelling errors. Any formal questions or concerns about the content, text or information contained within the body of this dictation should be directly addressed to the provider for clarification Total Time Total Time Spent Total Time Spent (In Minutes): 45 Total Time Includes: Examination of the Patient, Discharge Planning, Medication Reconciliation, Communication With Other Providers and Other Discharge Plan Discharge Items Patient Disposition: Home - Self-Care Reason For Visit: DIZZINESS Discharge Diagnosis: Vertigo Condition on Discharge: Fair Activity: Resume your previous activity Non-emergency contact: Primary Care Provider Call non-emergency contact if: you have any medication questions and your symptoms worsen Follow-up/Referrals: Hector Albrecht [Primary Care Provider] - (The office will call you to set up a follow up appointment.) Diet: Regular Addtl Attending Provider Instructions: You were admitted to the hospital due to vertigo. You underwent workup including a scan of your brain including MRI which did not show any stroke. You underwent echocardiogram which showed normal heart function. Your heart rate was found to be on the slower side; decrease metoprolol to 12.5 mg twice a day from 25 mg twice a day. You are also prescribed meclizine 25 mg to be taken twice a day as needed for vertigo. Please follow-up with your primary care doctor and obtain referral for ENT. Pending Studies at Discharge: No Stand-Alone Forms: My [facility] Second & Fourth, Smoking Cessation Medications and DC Order Prescriptions: New meclizine 25 mg tablet 25 mg PO BID PRN (Reason: dizziness) Qty: 14 0RF Continued ascorbic acid (vitamin C) [Vitamin C] 500 mg Tablet 500 mg PO DAILY epinephrine 0.3 mg/0.3 mL auto-injector 0.3 mg IM DAILY PRN (Reason: Allergic Reaction) Eliquis 5 mg tablet 5 mg PO BID buspirone 7.5 mg tablet 7.5 mg PO BID Changed metoprolol succinate 25 mg tablet extended release 24 hr 12.5 mg PO BID Qty: 0 0RF Discharge Orders: Discharge Order (Routine); Ordered 11/08/24 Ordered By: Sandor Hernandez Admission Data Admit Date/Time: 11/06/24 18:28 Attending Provider: Sandor Hernandez Admit Provider: Ajit Knapp Primary Care Provider: Hector Albrecht Other Providers: Ajit Knapp; Champ Lee Other Interventions: Discharge Summary Assessment (RN) Last Done: 11/08/24 10:57
--- NOTE | 2024-11-10 10:09 | Electrocardiogram Report ---
Test Reason : Blood Pressure : */* mmHG Vent. Rate : 52 BPM Atrial Rate : 52 BPM P-R Int : 168 ms QRS Dur : 86 ms QT Int : 462 ms P-R-T Axes : 41 22 22 degrees QTcB Int : 429 ms Sinus bradycardia Low voltage QRS Borderline ECG When compared with ECG of 07-Nov-2024 05:38, No significant change was found Confirmed by Tony Sandy ([id number]) on 11/10/2024 10:09:04 AM Referred By: REFERRED SELF Confirmed By: Tony Sandy
== END 2024-11-08 11:26 | disposition home or self-care (01) | DRG 149 ==
LOC: ED 16:12 → SUATTDRO 18:28 → 2S 18:28